=== PATIENT | female | born 1965 | race Two or more races ===

== ENCOUNTER 2024-12-06 07:06 | Outpatient (CLI) | payer MEDICAID, SELFPAY ==
[2024-11-19 09:12] VITALS: BMI 32.8
[2024-12-04 16:45] VITALS: BMI 32.8
[2024-12-06] VITALS (11 sets, daily range): BP systolic 109–142; BP diastolic 50–98; PULSE 70–85; RESP 11–22; TEMP 36.1–36.2; O2SAT 92–100; BMI 32.3
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
[2024-12-06] MEDS: DIAZEPAM 5 MG TABLET PO (09:15)
[2024-12-06] MEDS: MIDAZOLAM INJ 1 MG/ML VIAL 2 ML 3 MG IVP (09:48)
[2024-12-06] MEDS: fentaNYL CIT INJ 50 mCg/ML AMP 2ML IV (09:50)
== END 2024-12-06 11:00 | disposition home or self-care (01) ==
PROVIDERS: PCP Internal Medicine; Referring Provider Internal Medicine; Visit Provider Internal Medicine
DX: M25.78 Osteophyte, vertebrae (principal); M48.02 Spinal stenosis, cervical region
CPT/HCPCS: 72141; 99152; 99153; J2250; J3010; A9270

== ENCOUNTER 2024-12-26 08:45 | Outpatient (RCR) | payer MEDICAID, SELFPAY ==
--- NOTE | 2024-12-25 09:00 | XR_ITS ---
Examination: Nuclear medicine thyroid uptake and scan Date and time: December 25, 2024 1549 hours INDICATIONS: Diagnosis thyroid toxicosis, difficulty swallowing weight loss TECHNIQUE AND FINDINGS: Oral administration 295 uCi I-123 6 hour uptake 44.2% normal range 6-24% Patient could not cooperate for the remainder of the study IMPRESSION: Elevated thyroid uptake values
== END 2024-12-31 23:59 | disposition home or self-care (01) ==
LOC: SNUC 08:45
PROVIDERS: PCP Internal Medicine; Referring Provider Internal Medicine; Visit Provider Internal Medicine
DX: R94.6 Abnormal results of thyroid function studies (principal)
CPT/HCPCS: 78013; A9516

== ENCOUNTER 2025-01-09 08:30 | Outpatient (RCR) | payer MEDICAID, SELFPAY ==
--- NOTE | 2025-01-08 08:30 | XR_ITS ---
EXAMINATION: Nuclear medicine thyroid scan Date and time: January 08, 2025, 0830 hours INDICATIONS: Thyrotoxicosis diagnosis difficulty swallowing weight loss hypertension TECHNIQUE AND FINDINGS: Oral administration 288 uCi I-123 The patient refused the study IMPRESSION:: The patient refused the study
== END 2025-01-14 23:59 | disposition home or self-care (01) ==
LOC: SNUC 08:30
PROVIDERS: Referring Provider Internal Medicine; Visit Provider Internal Medicine
DX: E05.90 Thyrotoxicosis, unspecified without thyrotoxic crisis or storm (principal)
CPT/HCPCS: 78013; A9516

== ENCOUNTER 2025-01-22 15:20 | Emergency (ER) | payer MEDICAID, SELFPAY ==
[2025-01-22 15:35] VITALS: BP 155/90; PULSE 140; RESP 20; TEMP 36.4; O2SAT 97
[2025-01-22] MEDS: OXYMETAZOLINE NAS SPRY 0.05% 15 ML BTL NASAL (15:52)
[2025-01-22] MEDS: LIDOCAINE 1% W/EPI 1:100K 20 ML VIAL INFL (15:52)
--- NOTE | 2025-01-22 16:28 | PC.NURSE ---
MD PLACED NASAL ROCKET TO LEFT NARE SPRAY AND LIDO WITH EPI APPLIED AND GIVEN TO
[2025-01-22 16:33] VITALS: BP 128/86; PULSE 108; RESP 20; TEMP 36.8; O2SAT 97
--- NOTE | 2025-01-22 17:12 | PD.EDEPIST ---
ED Epistaxis RME/HPI General Chief complaint: Epistaxis/Nasal Foreign Body Stated complaint: Nosebleed X 20 mins, dizzy Time Seen by Provider: 01/22/25 15:26 Arrival date/time: 01/22/25 15:20 RME / HPI RME / HPI Narrative: 59 year old female with history of hypertension presents to the ED for evaluation of epistaxis beginning 30 minutes prior to arrival and persistently bleeding since. Patient states she held pressure with no improvement. Denies any recent injury or trauma. Denies history of similar nose bleed. No other associated symptoms reported. Related Data Home Medications ?Medication ?Instructions ?Recorded ?Confirmed amlodipine 10 mg tablet 10 mg PO QDAY 12/06/24 12/06/24 cetirizine 10 mg tablet (Allergy 10 mg PO QDAY PRN allergies 12/06/24 12/06/24 Relief (cetirizine)) gabapentin 300 mg capsule 300 mg PO QDAY 12/06/24 12/06/24 hydroxyzine HCl 50 mg tablet 50 mg PO HS 12/06/24 12/06/24 losartan 100 mg tablet 100 mg PO QDAY 12/06/24 12/06/24 meclizine 25 mg tablet (Motion 25 mg PO QDAY 12/06/24 12/06/24 Sickness (meclizine)) meloxicam 15 mg tablet 15 mg PO QDAY 12/06/24 12/06/24 methocarbamol 500 mg tablet 500 mg PO BID 12/06/24 12/06/24 montelukast 10 mg tablet 10 mg PO QDAY 12/06/24 12/06/24 prochlorperazine maleate 5 mg 5 mg PO QDAY 12/06/24 12/06/24 tablet Allergies Allergy/AdvReac Type Severity Reaction Status Date / Time codeine Allergy Intermediate Hives Verified 01/22/25 15:24 Penicillins Allergy Intermediate RASH Verified 01/22/25 15:24 Review of Systems Review of Systems Systems Reviewed: All systems reviewed, normal except as documented Past Medical History Past Medical History CARDIAC: Positive Hypertension (TAKES MED) RESPIRATORY: Positive Asthma (HAS INHALER HAD BEEN HOSP), Pneumonia and Tuberculosis (TREATED 1993) GASTROINTESTINAL: Positive Gastrointestinal Disorders and Gall Bladder Disease (FOR THIS POS) REPRODUCTIVE: Positive Previous Pregnancies (X4) OTHER HISTORY: Positive Hospitalization (HOSP FOR ASTHMA) and Chicken Pox Family History FAMILY HISTORY: Positive Family Cardiac Disorders (mother (cva)) and Family Surgery (MOTHER) Surgical History SURGICAL: Positive Hysterectomy (PARTIAL) and Section (X4) Social History SMOKING STATUS: Never smoker ED Exam Narrative Physical exam: GENERAL APPEARANCE:? alert and oriented x 4, well-developed, well-nourished, no acute distress HEENT: normocephalic, atraumatic; bleeding from the left nare NECK: supple LUNGS: no respiratory distress, normal effort HEART: good peripheral perfusion ABDOMEN: non distended EXTREMITIES:? atraumatic NEUROLOGIC: awake; alert and oriented x4; cranial nerves II-XII grossly intact PSYCHIATRIC:? appropriate mood and affect SKIN: warm, dry, normal color; no rashes Course Course Course Narrative: On reassessment, the bleeding is controlled. Patient will be discharged home. Strict return precautions were outlined. Quality Measures none Orders Category Date Time Status Lidocaine 1% W/Epi 1:100K 20Ml [Xylocaine 1% w/Epi 1: Med 01/22/25 15:41 Discontinued 100K 20 ml] 20 ml INFL X1 ONE Oxymetazoline Bhupendra Enville 0.05% [Afrin Nasal [place]] Med 01/22/25 15:41 Discontinued See Dose Instructions NASAL X1 ONE Vital Signs Vital signs: Vital Signs Temperature 97.6 F 01/22/25 15:35 Pulse Rate 140 H 01/22/25 15:35 Respiratory Rate 20 01/22/25 15:35 Blood Pressure 155/90 H 01/22/25 15:35 Pulse Oximetry (%) 97 01/22/25 15:35 Oxygen Delivery Method Room Air 01/22/25 15:35 Pulse ox is 97% on room air which is adequate. PROCEDURES: Epistaxis Control Time Out Performed: Yes Nostril: left Nose Prepped With: lidocaine Direct Inspection: yes Cautery Used: none Device Inserted: nasal tampon Patient Tolerated Procedure: Well and No Complications Epistaxis MDM Narrative [facility] Narrative:: Adele Carson am scribing for and in the presence of Dr. Mcmullen. Patient data External records reviewed:: [facility] previous records Clinical information provided by:: patient Social determinants that could affect healthcare access:: none Patient has the following chronic illnesses:: Hypertension How is presenting disease/condition affected by chronic disease/condition?: uneffected by Evaluation data The following diagnostics were reviewed and interpreted by me:: other (specify) (No diagnostics ordered ) Lab and/or radiology exams considered but not ordered:: None Interpretation Summary: N/A Medications / Prescriptions Medications or Prescriptions considered but not ordered:: None Medication administrations:: Medication Administration History Discontinued Medications Lidocaine/Epinephrine (Lidocaine 1% W/Epi 1:100k 20 Ml Vial) 20 ml INFL X1 ONE Stop: 01/22/25 15:42 Last Admin: 01/22/25 15:52 Dose: 20 ml Documented By: DIANA Oxymetazoline HCl (Oxymetazoline Bhupendra Enville 0.05% 15 Ml Btl) 0 spray NASAL X1 ONE Stop: 01/22/25 15:42 Last Admin: 01/22/25 15:52 Dose: 2 spr Documented By: DIANA See above Consultations Consultation(s) initiated? (list below): No Diagnosis Most likely diagnosis given after review of the tests above:: Epistaxis Admission Indicated Admission indicated?: not indicated Admission Request Was there a request for admission?: No Disposition Plan Disposition Plan: Discharge Discharge Attestation Discharge Attestation: The patient and all family members were given an opportunity to ask questions and understood the discharge instructions. Discharge instructions specifically effects, indications for sooner follow up or return to the emergency department, and the expected course of current diagnosis. Patient condition: Stable Discharge Plan Plan Patient Disposition: HOME (Self Care) Prescriptions/Referrals Prescriptions/Med Rec: No Action meclizine [Motion Sickness (meclizine)] 25 mg tablet 25 mg PO QDAY methocarbamol 500 mg tablet 500 mg PO BID cetirizine [Allergy Relief (cetirizine)] 10 mg tablet 10 mg PO QDAY PRN (Reason: allergies) prochlorperazine maleate 5 mg tablet 5 mg PO QDAY meloxicam 15 mg tablet 15 mg PO QDAY hydroxyzine HCl 50 mg tablet 50 mg PO HS amlodipine 10 mg tablet 10 mg PO QDAY gabapentin 300 mg capsule 300 mg PO QDAY montelukast 10 mg tablet 10 mg PO QDAY losartan 100 mg tablet 100 mg PO QDAY Referrals: Verónica Potter MD [Primary Care Provider, Internal Medicine] - In 1 week Problem List Clinical Impression: Epistaxis Patient/Caregiver Discharge Instructions Education Materials: ED Epistaxis (Adult), ED Nasal Packing Removable Anterior Print Language: Korean Stand Alone Forms: Recorded Future Award Info., Patient Portal Info Letter
[2025-01-22 18:09] VITALS: PULSE 93; RESP 18; O2SAT 96
== END 2025-01-22 18:15 | disposition home or self-care (01) ==
PROVIDERS: Emergency Provider Emergency Medicine; PCP Internal Medicine
DX: T17.1XXA Foreign body in nostril, initial encounter (principal); W44.9XXA Unspecified foreign body entering into or through a natural orifice, initial encounter; I10 Essential (primary) hypertension; R04.0 Epistaxis; Z90.710 Acquired absence of both cervix and uterus
CPT/HCPCS: 30901; 99282; J3490; A9270